=== PATIENT | female | born 1965 | race Caucasian/White ===

== ENCOUNTER → 2016-06-24 | Outpatient (CLI) | payer BC ==
[~2016-06-24] MED LIST: GADOBUTROL 10mMol/10ml INJECTION IV ONE; NORMAL SALINE 50 ML IV ONE; SALINE FLUSH 10ml SYRINGE ONE
--- NOTE | 2016-06-24 16:06 | DI ---
Indication: ITS.REASON: Z85.3 BREAST CA; N63 LUMP PROCEDURE: MRI BREAST BILATERAL W/WO CON: Encounter: Initial Comparison: Breast MRI dated February 08, 2015 Technique: Multiplanar multisequence MR imaging of both breasts was performed using a dedicated breast coil. Dedicated silicone suppression sequences were performed to evaluate the patient's implants. Dynamic post contrast imaging was performed in multiple phases with analysis on a [employer] workstation. Contrast: 15 mL Gadavist Findings: Bilateral silicone implants appear intact without evidence of intra or extracapsular rupture. Bilateral mastectomies again noted. No adenopathy. No enhancing mass. No pathologically enlarged axillary adenopathy. No change in appearance of the breast reconstructions. Impression: Stable exam with no MR evidence of recurrent malignancy. BI-RADS 2: Benign .
== END ==
LOC: IMA 07:29
PROVIDERS: ATTEND Family Medicine
DX: Z98.82 Breast implant status (principal); Z85.3 Personal history of malignant neoplasm of breast; Z90.13 Acquired absence of bilateral breasts and nipples; R92.8 Other abnormal and inconclusive findings on diagnostic imaging of breast
CPT/HCPCS: 76377; 77059; A9585; J1642; J7050